=== PATIENT | female | born 1950 | race Caucasian/White ===

== ENCOUNTER → 2021-01-21 | Day surgery (SDC) | payer MEDICARE, OTHER ==
[~2021-01-21] MED LIST: CITALOPRAM HBR40 MG PO; SYNTHROID75 MC1 PO; ZYRTEC10 MG PO
== END | disposition home or self-care (01) ==
LOC: FAS 06:21
DX: Z12.11 Encounter for screening for malignant neoplasm of colon (principal); K21.00 Gastro-esophageal reflux disease with esophagitis, without bleeding; K64.0 First degree hemorrhoids; K59.09 Other constipation; K29.70 Gastritis, unspecified, without bleeding; E03.9 Hypothyroidism, unspecified; M85.80 Other specified disorders of bone density and structure, unspecified site; Z20.822 Contact with and (suspected) exposure to COVID-19; Z90.49 Acquired absence of other specified parts of digestive tract; Z78.0 Asymptomatic menopausal state; Z88.1 Allergy status to other antibiotic agents; Z90.710 Acquired absence of both cervix and uterus; Z82.49 Family history of ischemic heart disease and other diseases of the circulatory system
CPT/HCPCS: 88305; J2704; J7120